=== PATIENT | male | born 1990 | race Caucasian/White ===

== ENCOUNTER 2017-04-05 20:33 | Observation (INO) | payer SELFPAY ==
[~2017-04-05] VITALS: Ht 193 cm; Wt 97.5 kg
[2017-04-05 20:35] VITALS: BP 123/80
[2017-04-05 21:23] LABS: LYMPH # 3.2 K/mm3 (0.7-4.5); LYMPH % 38.6 % (10-50)
--- NOTE | 2017-04-05 21:27 | Emergency Room Report ---
History of Present Illness Time Seen by [id number] Presenting Problem in Triage Pt arrived:Walked Presenting Problem:C/O LACERATION TO LEFT HAND BETWEEN 4TH AND 5 TH FINGERS. HAPPENED WHILE WORKING ON [employer]. 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 N Clinical Suspician of Infection? N Mental Status: 1 - Regular (Normal Baseline) Sepsis Risk:Possible Sepsis Risk Have you (or family members/close friends) recently traveled outside the [place]? N If Yes, where/when: Have you had exposure to infectious disease within the past month? N TB? Other? Specify: Source patient, RN notes reviewed, family, old records Exam Limitations no limitations Comment piece of farm machinery missled through lt hand with laceration - he reports dirty wound Cardiac Chest Pain Chest pain indicative of cardiac No Timing/Duration this evening Severity moderate ALLERGIES Coded Allergies: Penicillins (04/05/17) History Medical History General CAD? No Angina: No NH: No Hypertension? No Hyperlipidemia? No CHF? No DVT? No PE? No COPD? No Asthma? No Anemia? No GERD? No Gastric ulcers? No GI Bleed? No Hernia? No Thyroid Problems? No Hypothyroidism? No CVA? No Seizures? No Diabetes? No End Stage Renal Disease? No UTI? No Stones? No BPH? No GB Disease: No Nephritic Syndrome? No Asplenia? No Hepatitis? No Sickle Cell Disease? No Arthritis? No Migraines? No Cataracts? No Glaucoma? No MRSA? No HIV? No TB? No Anxiety? No Depression? No Cancer? No Immunization Hx DT/Tetanus Unknown Surgical Hx Previous Surgery?Y ABDOMINAL SURGERY Social History Smoking Hx Smoker: Current Every Day Smoker Tobacco: Yes Type Cigarettes Packs/day < 1 Pack Are you/the child exposed to second-hand smoke: No Alcohol Alcohol: No Drugs none Review of Systems All Other Systems Reviewed and Negative Constitutional denies fever Eyes denies drainage ENT denies: ear discharge, epistaxis, throat pain. Respiratory denies cough, denies shortness of breath Cardiovascular denies chest pain, denies syncope Gastrointestinal denies abdominal pain, denies diarrhea, denies vomiting Genitourinary denies: dysuria, frequency, hesitancy, hematuria. Musculoskeletal see HPI, denies back pain, denies joint pain, denies joint swelling, denies neck pain, other Skin see HPI, denies rash, other Psychiatric/Neurological denies headache, denies seizure Physical Exam Vital Signs Vital Signs Date Time Temp Pulse Resp B/P Pulse O2 O2 Flow FiO2 Ox Delivery Rate 04/05 2138 98.7 84 20 135/87 99 04/05 2133 20 04/05 2035 98.7 95 20 123/80 95 - WBC >12,000 or <4,000 or 10% bands? 2 or more SIRS Criteria Met? B/P:123/80 MAP:94 Creatinine >2.0? UA output<0.5ml/kg/hr for 2 hrs? Platelet count >100,000? Lactate >2.0mmol/1? INR >1.2 or PTT > than 60 sec? Evidence of Organ Dysfunction? Provider documented clinical suspician of infection? N Sepsis Criteria Count: 2N Sepsis Risk: Possible Sepsis Risk General Appearance no apparent distress Eye Exam - bilateral eye PERRL, bilateral eye EOMI Ear, Nose, Throat normal ENT inspection Neck supple Respiratory Status No: respiratory distress. Cardiovascular regular rate/rhythm Peripheral Pulses Pulses normal Yes Neurologic alert, commodity lead II-XII nml as tested, no motor/sensory deficits Reflexes Reflexes normal No Mental status normal mood/affect Skin laceration(s), open wd lt hand with motor ok and no gross sensory changes Medical Decision Making LABS/Meds/Orders Pt receiving controlled substance in ED? No Results/Orders Laboratory Tests 04/05/172144: Sodium 140, Potassium 3.9, Chloride 105, Carbon Dioxide 27, BUN 21 H, Creatinine 1.0, Estimated Creat Clear 152, Estimated GFR (MDRD) 89, Glucose 112 H, Calcium 9.1, Total Bilirubin 0.9, AST 17, ALT 36, Alkaline Phosphatase 61, Total Protein 7.8, Albumin 4.7, Globulin 3.1, Albumin/Globulin Ratio 1.5 04/05/172104: WBC 8.2, RBC 4.68, Hgb 15.0, Hct 43.8, MCV 93.5, RDW 12.1, Plt Count 220, MPV 6.1 L, Gran % 53.7, Gran # 4.4, Lymphocytes % 38.6, Monocytes % 6.3, Eosinophils % 0.8, Basophils % 0.5, Lymphocytes # 3.2, Monocytes # 0.5, Eosinophils # 0.1, Basophils # 0.0, PUBS MCHC 34.2, MCH 32.0 H Current Medication Orders Sig/Gene Start time Last Medication Dose Route Stop Time Status Admin Lactated Ringer's 1,000 ML .STK-MED ONE 04/05 2147 DC IV Fentanyl Citrate 0 .STK-MED ONE 04/05 2142 DC IV Midazolam HCl 0 .STK-MED ONE 04/05 2141 DC .ROUTE Morphine Sulfate 4 MG ONCE ONE 04/05 2130 DC 04/05 IV 04/05 Ondansetron HCl 4 MG ONCE ONE 04/05 2130 DC 04/05 IV 04/05 Morphine Sulfate 0 .STK-MED ONE 04/05 2125 DC .ROUTE Ondansetron HCl 0 .STK-MED ONE 04/05 2125 DC .ROUTE Diphtheria/Pertussis/ 0 .STK-MED ONE 04/05 2116 DC Tetanus Vacc IM Diphtheria/Pertussis/ 0.5 ML ONCE ONE 04/05 2115 DC 04/05 Tetanus Vacc IM 04/05 Sodium Chloride 10 ML PRN PRN 04/05 2100 AC IV 04/06 2049 Lidocaine HCl 0 .STK-MED ONE 04/05 2037 DC .ROUTE Orders Procedure Date/time Status CBC WITH AUTO DIFF 04/05 2114 Complete CHEM 12 PROFILE 04/05 2114 Complete IV SALINE LOCK 04/05 2049 Active HAND-LT-3 VIEWS 04/05 2043 Active XRAY/CT/US XRAY/CT/US XRAY hand XR interpretation by reviewed by me Xray Results no fracture seen Departure Departure Time of Disposition 2114 Disposition Still a Patient Clinical Impression Primary Impression: Open wound, hand Qualifiers: Encounter type: initial encounter Open wound type: laceration Foreign body presence: without foreign body Laterality: left Qualified Code: S61.412A - Laceration without foreign body of left hand, initial encounter Condition STABLE Referrals José Antonio Bedoya MD discussed with dr daisy [facility] Critical [facility] Critical Care No at 2207
--- NOTE | 2017-04-05 22:16 | CONSULT NOTE ---
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 Insensate radial SF and ulnar RF. Grossly contaminated hand/lacerations. Cap refill approx one second. No evident fxs on films. Impression: Complex hand traumatic laceration with common digital nerve likely injured. Recommendations: To OR tonight ([facility]) for I&D. Risks and benefits explained in detail. All questions answered. at 1616
--- NOTE | 2017-04-05 22:16 | CONSULT NOTE ---
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 Insensate radial SF and ulnar RF. Grossly contaminated hand/lacerations. Cap refill approx one second. No evident fxs on films. Impression: Complex hand traumatic laceration with common digital nerve likely injured. Recommendations: To OR tonight ([facility]) for I&D. Risks and benefits explained in detail. All questions answered. at [phone]
[2017-04-06] VITALS (14 sets, daily range): BP systolic 108–149; BP diastolic 53–95
--- NOTE | 2017-04-06 00:11 | Anesthesia Record ---
Anesthesia Record Part I Total IV fluids: 1000 EBL (ml): 10 Urine Output: 0 B/P: 108/53 % SaO2: 100 Pulse: 97 Resps: 16 Temp: 98.9 Patient is: Awake, Nasal O2, Stable Stable to PACU at: 0000 at 0010
--- NOTE | 2017-04-06 00:11 | Anesthesia Record ---
Anesthesia Record Part II Discharge time: 29 Destination: Second Floor PACU nurse assessment review? Yes Patient is: Awake, Stable Anesthesia complications? No at 0010
--- NOTE | 2017-04-06 05:36 | RADIOLOGY REPORT PS360 ---
HAND-LT-3 VIEWS HISTORY: Pain following injury hand injury ORDERING PHYSICIAN: José Antonio Bedoya MD PATIENT AGE: 26 years COMPARISON: None FINDINGS: No fracture or dislocation. No lytic or blastic change. There is normal mineralization. The joint spaces are well-preserved. No significant degenerative/arthritic changes. No erosive changes evident. No radio opaque foreign body. There is some mild mottled density along the fourth and fifth interspaces of the metacarpals consistent with mild edema IMPRESSION: 1. No acute fracture or foreign body. 2. Mild soft tissue swelling
--- NOTE | 2017-04-06 07:13 | PHARMACY CLINIC NOTE ---
See Addendum Patient Demographics Patient Demographics Admission date: 04/06/17 Date: 04/06/17 Time: 07 Allergies Coded Allergies: Penicillins (04/05/17) HEIGHT- FT: 6 IN: 4.00 K.524 VTE General Information Labs: Laboratory Tests 04/05 2105 Hematology Hgb (14.1 - 18.0 g/dL) 15.0 Hct (42.0 - 52.0 %) 43.8 Plt Count (142 - 424 K/mm3) 220 Disclaimer The following section includes nursing documentation that has been pulled in for pharmacy review. Patient's VTE score: 1 Patient's VTE Risk: VERY LOW RISK Clinical trial participant? No VTE prophylaxis NQF [id number] VTE prophylaxis ordered? Yes Type of prophylaxis/treatment: BALDEMAR at 0713
--- NOTE | 2017-04-06 09:40 | Operative Note ---
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 He presents to the emergency department within 1 hour of the injuryExamination shows an alert male, cooperative, who has a complex penetrating left nondominant hand laceration. Examination shows an entry wound on the volar aspect with a dorsal exit wound. The entire arm is covered with grease and the entrance and exit wounds are grossly contaminated with dirt and pieces of grass.The patient appears to have complete anesthesia with sensation only to pressure on the radial aspect of the small finger and has paresthesias on the dorsal ulnar aspect of the ring finger. Irrigation and debridement in the operating room are indicated to debride the laceration and help prevent infection. Findings: A complex laceration of the left hand is present with an approximately 5-6 cm irregular entrance wound on the palmar aspect between the fourth and fifth metacarpals and an irregular exit wound approximately 4 cm in length on the dorsal aspect of the hand. X-rays demonstrate no evident fracture. The wound and the entire arm are grossly contaminated with grease and hay particles. Description of procedure: The patient was taken to the operating room and placed in the supine position. A tourniquet was not utilized. General anesthetic was utilized. We first used automotive anesthesiologist assistant certified to remove the gross contamination from the patient's left arm taking care not to scrub the actual lacerations themselves. This took several minutes and then we continued to irrigate to get the automotive cleanser off. We then performed a formal prep and draping using Hibiclens.Under loupe magnification, the lacerations were debrided first with the volar laceration and then the dorsal laceration. An ERBE pulsatile lavage system was utilized to irrigate under low pressure utilizing normal saline. We then debrided nonviable subcutaneous tissue and removed all accessible contaminants. We did not identify the neurovascular bundle however dissection looking for the bundle was not undertaken. We then turned attention to the dorsal aspect of the wound. Similar techniques were utilized to debride the subcutaneous tissues using iris scissors and bits of nonviable muscle tissue as well.We follow this with additional low pressure pulsatile normal saline irrigation. We then reirrigated the volar aspect one more time and placed a Rik drain. Dressings were applied and the patient awakened and transported to the recovery room in satisfactory condition. EBL (ml): 5 at 0907
[2017-04-06] MEDS ORDERED: OSTEO BI-FLEX1 EAC1 PO (11:41)
[2017-04-06] MEDS ORDERED: MULTI-VITAMINS1 TAB PO (11:42)
--- OUTSIDE RECORDS SUMMARY | 2017-04-16 17:06 | External Medical Summary Rpt ---
Author Author , Organization [employer] Address Unknown Phone Unavailable Purpose Continuity of Care Document - through 2016 Problems Code Diagnosis DOS Provider Status S61.409A UNSPECIFIED OPEN WOUND OF UNSPECIFIED HAND, INIT ENCNTR
--- OUTSIDE RECORDS SUMMARY | 2017-04-16 17:06 | External Medical Summary Rpt ---
Demographics Preferred Language Indonesian Marital Status Unknown Shinto Affiliation Unknown Race Unknown Ethnic Group Unknown Author Author , Organization [employer] Address Unknown Phone Unavailable Purpose Continuity of Care Document - 06-20-2000 through 2016 Immunization Name Date Route CVX Reacti Commen Provid Is Given on t er Refuse d Td Histor H212 No (adult 1999 ical ), Inform adsorb ation ed - Source Unspec ified Hep B, Histor H212 No 1999 ical ped/ad Inform ol ation - Source Unspec ified MMR Histor H212 No 1999 ical Inform ation - Source Unspec ified
--- OUTSIDE RECORDS SUMMARY | 2017-04-16 17:06 | External Medical Summary Rpt ---
Author Author [employer] Organization [employer] Address Unknown Phone Unavailable Purpose Continuity of Care Document - through 2016
--- OUTSIDE RECORDS SUMMARY | 2017-04-16 17:06 | External Medical Summary Rpt ---
Demographics Preferred Language Sinhala Marital Status Unknown Quaker Affiliation Unknown Race Unknown Ethnic Group Unknown [...]
== END 2017-04-06 09:30 | disposition home or self-care (01) ==
LOC: ER 20:33 → 2ND 22:03 → ER 22:03 → 2ND 04-06 01:06
PROVIDERS: Emergency Medicine
PROC: 0XQK0ZZ Repair Left Hand, Open Approach (ICD-10-PCS; principal; 2017-04-06)
DX: S61.432A Puncture wound without foreign body of left hand, initial encounter (principal); S61.412A Laceration without foreign body of left hand, initial encounter; W30.2XXA Contact with hay derrick, initial encounter
CPT/HCPCS: G0378; J2405